=== PATIENT | male | born 1995 | race Caucasian/White ===

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

== ENCOUNTER → 2018-07-09 | Outpatient (CLI) | payer OTHER, BC ==
[~2018-07-09] MED LIST: ANTIBIOTIC PO
== END ==
LOC: COL.RAD 06-30 09:15
DX: S53.441A Ulnar collateral ligament sprain of right elbow, initial encounter (principal); Z98.890 Other specified postprocedural states
CPT/HCPCS: A9585; Q9967